=== PATIENT | female | born 1960 | race African-American/Black ===

== ENCOUNTER 2020-04-30 18:48 | Emergency (ER) | payer MEDICARE ==
[~2020-04-30] VITALS: Ht 160 cm; Wt 131.8 kg
[2020-04-30 20:07] LABS: BASO % 1 % (0-3); EOS # 0.2 x10^3/uL (0.0-0.7); EOS % 3 % (0-3); HEMATOCRIT 36.6 % (36.0-47.0); HEMOGLOBIN 11.6 g/dL (12.0-15.5); LYMPH # 1.7 x10^3/uL (1.0-4.8); LYMPH % 23 % (24-48); MEAN CORPUSCULAR HEMOGLOBIN 25 pg (25-35); MEAN CORPUSCULAR HGB CONC 32 g/dL (31-37); MEAN CORPUSCULAR VOLUME 78 fL (79-100); MONO # 0.6 x10^3/uL (0.0-1.1); MONO % 8 % (0-9); NEUT # 4.9 x10^3uL (1.8-7.7); NEUT % 66 % (31-73); PLATELET COUNT 193 x10^3/uL (140-400); RED BLOOD COUNT 4.67 x10^6/uL (3.50-5.40); RED CELL DISTRIBUTION WIDTH 15.9 % (11.5-14.5); WHITE BLOOD COUNT 7.5 x10^3/uL (4.0-11.0)
--- NOTE | 2020-04-30 20:12 | RAD ---
EXAM: AP and lateral views of the right tibia/fibula DATE: 04/30/2020 7:30 PM INDICATION: Reason: Right lower leg swelling and pain, no trauma / Spl. Instructions: / History: COMPARISON: No Prior FINDINGS: No acute fracture or dislocation of the tibia/fibula. Degenerative changes are seen at the right knee. Changes of subtalar joint, calcaneocuboid and naviculocuneiform arthrodesis are seen. Diffuse soft tissue swelling about the right lower leg. Calcaneal enthesopathy. Midfoot degenerative changes are seen. IMPRESSION: 1. No evidence of acute fracture or dislocation. 2. Diffuse soft tissue swelling about the right lower leg 3. Changes of hindfoot arthrodesis as detailed above. Electronically signed by: Roman Ruby MD (04/30/2020 8:09 PM) CELE
[2020-04-30 20:14] LABS: GFR 56.9; POTASSIUM 3.6 mmol/L (3.5-5.1)
[2020-04-30 20:20] LABS: ALBUMIN 3.6 g/dL (3.4-5.0); ALBUMIN/GLOBULIN RATIO 1.1 (1.0-1.7); TOTAL BILIRUBIN 0.2 mg/dL (0.2-1.0)
--- NOTE | 2020-04-30 20:38 | PHYS DOC ---
Past History Past Medical History: Hypertension Additional Past Medical Histor: Club foot Past Surgical History: Other Additional Past Surgical Histo: right ankle surgery Smoking: Cigarettes Alcohol Use: None Drug Use: None General Adult EDM: Chief Complaint: LOWER EXTREMITY SWELLING HPI: HPI: 59-year-old female presents with report of right lower extremity swelling and pain that is been ongoing for the past 2 weeks. Patient reports symptoms have not improved. Reports sensation of some increased warmth to the area. Reports pain really only when patient is walking. Denies fever or chills. Denies known trauma. Patient does have a history of a clubfoot as a child that did require surgical intervention both as a child and again as an adult. Denies history of DVT or PE. Denies chest pain or shortness of air. Review of Systems: Review of Systems: Constitutional: Denies fever or chills Eyes: Denies redness or eye pain HENT: Denies nasal congestion or sore throat Respiratory: Denies cough or shortness of breath Cardiovascular: Denies chest pain or palpitations GI: Denies abdominal pain, nausea, or vomiting : Denies dysuria or hematuria Musculoskeletal: Denies back pain; reports pain to right lower extremity Integument: Denies rash; reports swelling and redness to right lower extremity Neurologic: Denies headache, focal weakness or sensory changes Complete systems were reviewed and found to be within normal limits, except as documented in this note. Allergies: Allergies: Allergies Coded Allergies Type Severity Reaction Last Updated Verified cephalexin Allergy Unknown 04/30/20 Yes Physical Exam: PE: Constitutional: Well developed, obese, no acute distress, non-toxic appearance HENT: Normocephalic, atraumatic Eyes: Conjunctiva normal, no discharge Neck: Normal range of motion, supple Cardiovascular: Right PT and DP +2 Lungs & Thorax: No respiratory distress, equal chest rise and fall Skin: Warm, dry, no erythema, venous stasis to bilateral lower extremities, mild erythema noted to pretibial area on right which is tender to palpation Extremities: Right anterior pretibial tenderness, ROM intact, 1+ edema to right lower extremity Neurologic: Alert and oriented X 3, no focal deficits noted Psychologic: Affect normal, judgment normal Current Patient Data: Labs: Laboratory Tests Test 04/30/20 19:40 White Blood Count 7.5 x10^3/uL (4.0-11.0) Red Blood Count 4.67 x10^6/uL (3.50-5.40) Hemoglobin 11.6 g/dL (12.0-15.5) L Hematocrit 36.6 % (36.0-47.0) Mean Corpuscular Volume 78 fL (79-100) L Mean Corpuscular Hemoglobin 25 pg (25-35) Mean Corpuscular Hemoglobin Concent 32 g/dL (31-37) Red Cell Distribution Width 15.9 % (11.5-14.5) H Platelet Count 193 x10^3/uL (140-400) Neutrophils (%) (Auto) 66 % (31-73) Lymphocytes (%) (Auto) 23 % (24-48) L Monocytes (%) (Auto) 8 % (0-9) Eosinophils (%) (Auto) 3 % (0-3) Basophils (%) (Auto) 1 % (0-3) Neutrophils # (Auto) 4.9 x10^3uL (1.8-7.7) Lymphocytes # (Auto) 1.7 x10^3/uL (1.0-4.8) Monocytes # (Auto) 0.6 x10^3/uL (0.0-1.1) Eosinophils # (Auto) 0.2 x10^3/uL (0.0-0.7) Basophils # (Auto) 0.0 x10^3/uL (0.0-0.2) Prothrombin Time 10.1 SEC (9.4-11.4) Prothrombin Time INR 1.0 (0.9-1.1) Activated Partial Thromboplast Time 26 SEC (23-33) Sodium Level 140 mmol/L (136-145) Potassium Level 3.6 mmol/L (3.5-5.1) Chloride Level 105 mmol/L (98-107) Carbon Dioxide Level 26 mmol/L (21-32) Anion Gap 9 (6-14) Blood Urea Nitrogen 9 mg/dL (7-20) Creatinine 1.0 mg/dL (0.6-1.0) Estimated GFR (Cockcroft-Gault) 56.9 BUN/Creatinine Ratio 9 (6-20) Glucose Level 111 mg/dL (70-99) H Lactic Acid Level 1.1 mmol/L (0.4-2.0) Calcium Level 9.0 mg/dL (8.5-10.1) Magnesium Level 2.0 mg/dL (1.8-2.4) Total Bilirubin 0.2 mg/dL (0.2-1.0) Aspartate Amino Transferase (AST) 23 U/L (15-37) Alanine Aminotransferase (ALT) 32 U/L (14-59) Alkaline Phosphatase 85 U/L (46-116) Total Protein 7.0 g/dL (6.4-8.2) Albumin 3.6 g/dL (3.4-5.0) Albumin/Globulin Ratio 1.1 (1.0-1.7) Vital Signs: Vital Signs Date Time Temp Pulse Resp B/P (MAP) Pulse Ox O2 Delivery O2 Flow Rate FiO2 04/30/20 18:48 98.5 92 16 176/93 (120) 99 Room Air EKG: EKG: [] Radiology/Procedures: Radiology/Procedures: PROCEDURE: TIBIA FIBULA RIGHT EXAM: AP and lateral views of the right tibia/fibula DATE: 04/30/2020 7:30 PM INDICATION: Reason: Right lower leg swelling and pain, no trauma / Spl. Instructions: / History: COMPARISON: No Prior FINDINGS: No acute fracture or dislocation of the tibia/fibula. Degenerative changes are seen at the right knee. Changes of subtalar joint, calcaneocuboid and naviculocuneiform arthrodesis are seen. Diffuse soft tissue swelling about the right lower leg. Calcaneal enthesopathy. Midfoot degenerative changes are seen. IMPRESSION: 1. No evidence of acute fracture or dislocation. 2. Diffuse soft tissue swelling about the right lower leg 3. Changes of hindfoot arthrodesis as detailed above. Electronically signed by: Roman Ruby MD (04/30/2020 8:09 PM) CELE PROCEDURE: VENOUS LOWER EXTREMITY RIGHT VENOUS LOWER EXTREMITY RIGHT History: Reason: RT LOWER LEG PAIN X 3 WEEKS / Spl. Instructions: / History: Comparison: None. Discussion: Multiple longitudinal and transverse high resolution real-time images of the venous system of right lower extremity were obtained with color and Doppler sampling. The common femoral, superficial femoral, popliteal and proximal calf veins are all patent and demonstrate normal flow and compressibility. Normal respiratory phasicity and augmentation is present. Right lower extremity subcutaneous edema. Impression: 1. No evidence of deep vein thrombosis. 2. Right lower extremity subcutaneous edema. Electronically signed by: Pedro Luis Martini DO (04/30/2020 8:51 PM) [facility] Course & Med Decision Making: Course & Med Decision Making Pertinent Labs and Imaging studies reviewed. (See chart for details) Patient presents with right lower extremity swelling and pain. Mild erythema noted. No history of known trauma. Patient does have a history of prior clubfoot that required surgical intervention both as a child and as an adult. V enous stasis dermatitis noted bilaterally. Labs obtained and posted to chart. WBC and lactic acid within normal limits. X-ray without fracture or dislocation but noted soft tissue swelling. Venous Doppler negative for DVT. Peripheral edema noted also on venous doppler. Concern for possible cellulitis component. Empiric doxycycline provided. Pain addressed with [facility]. [facility]s report negative for recent narcotic prescriptions. Patient stable for discharge with outpatient follow-up with PCP. Discussed findings and plan with patient, who acknowledges understanding and agreement. Cat Disclaimer: Cat Disclaimer: This electronic medical record was generated, in whole or in part, using a voice recognition dictation system. Departure Departure: Impression: Primary Impression: Peripheral edema Additional Impression: Cellulitis Qualified Codes: L03.115 - Cellulitis of right lower limb Disposition: HOME/RESIDENCE PRIOR TO ADM Condition: STABLE Patient Instructions: Cellulitis, [id number], Peripheral Edema Scripts Hydrocodone Bit/Acetaminophen (NORCO 5-325 TABLET) 1 Each Tablet 0.5-1 TAB PO Q6HRS PRN for PAIN, #10 TAB Prov: SUSAN CUMMINS DO 04/30/20 Doxycycline Hyclate (DOXYCYCLINE HYCLATE) 100 Mg Capsule 1 CAP PO BID for Cellulitis, #20 CAP Prov: SUSAN CUMMINS DO 04/30/20 Justification of Admission: Justification of Admission: Justification of Admission Dx: N/A SUSAN CUMMINS DO Apr 30, 2020 20:38
[2020-04-30 20:51] VITALS: BP 144/92
--- NOTE | 2020-04-30 20:54 | RAD ---
VENOUS LOWER EXTREMITY RIGHT History: Reason: RT LOWER LEG PAIN X 3 WEEKS / Spl. Instructions: / History: Comparison: None. Discussion: Multiple longitudinal and transverse high resolution real-time images of the venous system of right lower extremity were obtained with color and Doppler sampling. The common femoral, superficial femoral, popliteal and proximal calf veins are all patent and demonstrate normal flow and compressibility. Normal respiratory phasicity and augmentation is present. Right lower extremity subcutaneous edema. Impression: 1. No evidence of deep vein thrombosis. 2. Right lower extremity subcutaneous edema. Electronically signed by: Pedro Luis Martini DO (04/30/2020 8:51 PM) [facility]
[2020-04-30] MEDS ORDERED: DOXY100C2 PO (21:11)
[2020-04-30] MEDS ORDERED: HYDROcodone/APAP 5/325MG 1 TAB TABLET PO ONE (21:15)
[2020-04-30] MEDS ORDERED: HYDR-3165 PO (21:18)
[2020-04-30] MEDS ORDERED: POTASSIUM CHLORIDE 20 MEQ TABLET.ER. PO ONE (21:30)
[2020-04-30] MEDS ORDERED: DOXYCYCLINE HYCLATE 100 MG TABLET PO ONE (21:30)
== END 2020-04-30 21:30 | disposition home or self-care (01) ==
LOC: ER 18:48
DX: L03.115 Cellulitis of right lower limb (principal); R60.0 Localized edema; I10 Essential (primary) hypertension; F17.210 Nicotine dependence, cigarettes, uncomplicated; Z88.1 Allergy status to other antibiotic agents
CPT/HCPCS: 36415; 73590; 80053; 83605; 83735; 85025; 85610; 85730; 93971; 99285-25

== ENCOUNTER 2020-08-04 13:38 | Emergency (ER) | payer MEDICARE ==
[~2020-08-04] VITALS: Ht 160 cm; Wt 131.8 kg
[~2020-08-04 13:38] MED LIST: DOXY100C2 PO; HYDR-3165 PO
[2020-08-04] MEDS ORDERED: HYDR-3165 PO (14:34)
[2020-08-04] MEDS ORDERED: ORPH-16 PO (14:34)
--- NOTE | 2020-08-04 14:35 | PHYS DOC ---
Past History Past Medical History: Anxiety, Hypertension Additional Past Medical Histor: Club foot; SCOILOSIS; BOARDERLINE DM Past Surgical History: Appendectomy, Cholecystectomy, Other Additional Past Surgical Histo: right ankle surgery; GLAND REMOVED FROM THROAT; THYROIDECTOMY Smoking: Cigarettes Alcohol Use: None Drug Use: None General Adult EDM: Chief Complaint: BACK PAIN OR INJURY HPI: HPI: Patient is a 59 year old F who presents with left lower back pain for the past 5 days. She has a history of scoliosis and chronic low back pain, and states that she was on her feet more than normal over the weekend, and now has back pain as a result. She has been previously prescribed cyclobenzaprine for this back pain, but states that it does not help the pain much. She denies any radiation to the groin, denies dysuria or hematuria. Also denies any recent falls or trauma. Denies fevers, COOLEY, n/v. Review of Systems: Review of Systems: Constitutional: Denies fever or chills Eyes: Denies redness or eye pain HENT: Denies nasal congestion or sore throat Respiratory: Denies cough or shortness of breath Cardiovascular: Denies chest pain or palpitations GI: Denies abdominal pain, nausea, or vomiting : Denies dysuria or hematuria Musculoskeletal: Reports lower left sided back pain Integument: Reports skin lesions around bra line on lower back Neurologic: Denies headache, focal weakness or sensory changes Complete systems were reviewed and found to be within normal limits, except as documented in this note. Allergies: Allergies: Allergies Coded Allergies Type Severity Reaction Last Updated Verified cephalexin Allergy Unknown 08/04/20 Yes Physical Exam: PE: Constitutional: Well developed, well nourished, no acute distress, non-toxic appearance HENT: Normocephalic, atraumatic Eyes: PERRL, EOMI, conjunctiva normal, no discharge Neck: Normal range of motion, no tenderness, supple Lungs & Thorax: No respiratory distress, equal chest rise and fall Abdomen: Soft, no tenderness, obese Skin: Warm, dry, no erythema, black head cysts around the bra line on the left back, not tender to light touch. Back: left sided paraspinal muscle with deep palpation, lumbar ROM reduced due to pain, no CVA tenderness, no midline tenderness Extremities: No tenderness, ROM intact, no edema Neurologic: Alert and oriented X 3, normal motor function, normal sensory function, no focal deficits noted Psychologic: Affect normal, judgment normal Current Patient Data: Vital Signs: Vital Signs Date Time Temp Pulse Resp B/P (MAP) Pulse Ox O2 Delivery O2 Flow Rate FiO2 08/04/20 13:51 98.4 65 18 186/102 (130) 96 Room Air EKG: EKG: [] Radiology/Procedures: Radiology/Procedures: [] Course & Med Decision Making: Course & Med Decision Making Pt presents with acute on chronic lower left sided back pain most likely from compensation from her scoliosis. Pain was controlled and one time oral steroid was given to reduce inflammation. Patient stable for discharge with outpatient follow-up with PCP. Discussed findings and plan with patient, who acknowledges understanding and agreement. Cat Disclaimer: Cat Disclaimer: This electronic medical record was generated, in whole or in part, using a voice recognition dictation system. Departure Departure: Impression: Primary Impression: Acute exacerbation of chronic low back pain Disposition: 01 DC HOME SELF CARE/HOMELESS Condition: STABLE Referrals: RASHEL RODRIGUEZ MD (PCP) Patient Instructions: Back Pain, Adult, [id number] Additional Instructions: ICE area of discomfort 20 min on then leave off next 20 mins. Repeat several times daily as needed for pain. May take over the counter Ibuprofen or Aleve in addition to prescribed medications. Scripts Hydrocodone Bit/Acetaminophen (NORCO 5-325 TABLET) 1 Each Tablet 0.5-1 TAB PO Q6HRS PRN for PAIN, #10 TAB Prov: SUSAN CUMMINS DO 08/04/20 Orphenadrine Citrate (ORPHENADRINE CITRATE) 100 Mg Tablet.er 1 TAB PO BID PRN for MUSCLE PAIN, #14 TAB 0 Refills Prov: SUSAN CUMMINS DO 08/04/20 SUSAN CUMMINS DO Aug 04, 2020 14:35
[2020-08-04] MEDS ORDERED: HYDROcodone/APAP 5/325MG 1 TAB TABLET PO ONE (14:45)
[2020-08-04] MEDS ORDERED: DEXAMETHASONE 4 MG TABLET PO ONE (14:45)
[2020-08-04] MEDS ORDERED: ORPHENADRINE CITRATE 60 MG/2 ML VIAL. IM ONE (14:45)
[2020-08-04 14:50] VITALS: BP 181/109
== END 2020-08-04 15:00 | disposition home or self-care (01) ==
LOC: ER 13:38
DX: G89.29 Other chronic pain (principal); M54.5 Low back pain; L98.8 Other specified disorders of the skin and subcutaneous tissue; F41.9 Anxiety disorder, unspecified; I10 Essential (primary) hypertension; F17.210 Nicotine dependence, cigarettes, uncomplicated; Z90.89 Acquired absence of other organs; Z90.49 Acquired absence of other specified parts of digestive tract; Z88.1 Allergy status to other antibiotic agents
CPT/HCPCS: 96372; 99283; J2360; J8540

== ENCOUNTER 2020-12-16 19:44 | Emergency (ER) | payer MEDICARE ==
[~2020-12-16] VITALS: Ht 160 cm; Wt 136.6 kg
[~2020-12-16 19:44] MED LIST changes: +CARV6.2541 PO; +DOXA2TAB2 PO; +DULO60CA6 PO; +LEVO200T5 PO; +ORPH-16 PO
[2020-12-16] MEDS ORDERED: ASPIRIN CHEWABLE 81 MG TABLET. PO ONE (20:00)
[2020-12-16] MEDS ORDERED: IV NORMAL SALINE 1,000ML 1,000 ML IV SCH (20:00)
--- NOTE | 2020-12-16 20:11 | EKG ---
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
--- NOTE | 2020-12-16 20:17 | PHYS DOC ---
Past History Past Medical History: Anxiety, Hypertension Additional Past Medical Histor: Club foot; SCOILOSIS; BOARDERLINE DM (JONO GONZALEZ APRN) Past Surgical History: Appendectomy, Cholecystectomy, Other Additional Past Surgical Histo: right ankle surgery; GLAND REMOVED FROM THROAT; THYROIDECTOMY (JONO GONZALEZ APRN) Smoking: Cigarettes Alcohol Use: None Drug Use: None (JONO GONZALEZ APRN) General Adult EDM: Chief Complaint: CHEST PAIN HPI: HPI: Patient is a 59-year-old female who presents with left-sided chest pain. Patient reports chest pain started yesterday describes pain as a intermittent squeezing, pressure. Patient also reports left-sided arm and shoulder pain but reports this is a chronic issue. Patient states that she has had some nausea but denies vomiting, dizziness. Patient denies anything making the pain better or worse. Denies taking anything at home for the pain. Denies history of [place]. Patient has history of anxiety, hypertension, diabetes. (JONO GONZALEZ APRN) Review of Systems: Review of Systems: Constitutional: Denies fever or chills Eyes: Denies change in visual acuity HENT: Denies nasal congestion or sore throat Respiratory: Denies cough or shortness of breath Cardiovascular: Reports chest pain, denies edema GI: Denies abdominal pain, nausea, vomiting, bloody stools or diarrhea : Denies dysuria Musculoskeletal: Denies back pain or joint pain Integument: Denies rash Neurologic: Denies headache, focal weakness or sensory changes Endocrine: Denies polyuria or polydipsia Lymphatic: Denies swollen glands Psychiatric: Denies depression or anxiety (JONO GONZALEZ APRN) Current Medications: Current Meds: Current Medications Medications (Trade) Dose Ordered Sig/Aleyda Start Time Stop Time Status Last Admin Dose Admin Aspirin (Aspirin Chewable) 324 mg 1X ONCE 12/16/20 20:00 12/16/20 20:01 UNV Sodium Chloride 1,000 ml @ 1,000 mls/hr Q1H 12/16/20 20:00 12/16/20 20:59 UNV (JONO GONZALEZ APRN) Allergies: Allergies: Allergies Coded Allergies Type Severity Reaction Last Updated Verified cephalexin Allergy Unknown 08/04/20 Yes (JONO GONZALEZ APRN) Physical Exam: PE: Constitutional: Well developed, well nourished, no acute distress, non-toxic appearance. [] HENT: Normocephalic, atraumatic, bilateral external ears normal, oropharynx moist, no oral exudates, nose normal. [] Eyes: PERRLA, EOMI, conjunctiva normal, no discharge. [] Neck: Normal range of motion, no tenderness, supple, no stridor. [] Cardiovascular:Heart rate regular rhythm, no murmur [] Lungs & Thorax: Bilateral breath sounds clear to auscultation [] Abdomen: Bowel sounds normal, soft, no tenderness, no masses, no pulsatile masses. [] Skin: Warm, dry, no erythema, no rash. [] Back: No tenderness, no CVA tenderness. [] Extremities: No tenderness, no cyanosis, no clubbing, ROM intact, no edema. [] Neurologic: Alert and oriented X 3, normal motor function, normal sensory function, no focal deficits noted. [] Psychologic: Affect normal, judgement normal, mood normal. [] (JONO GONZALEZ APRN) EKG: EKG: Sinus rhythm. Heart rate 64 bpm. Intervals normal. Fairchance normal. Read by Dr. Ramos. [] (JONO GONZALEZ APRN) Radiology/Procedures: Radiology/Procedures: []INDICATION: Reason: chest pain / Spl. Instructions: / History: COMPARISON: November 24, 2010 FINDINGS: Single view of chest obtained. Cardiomediastinal silhouette is enlarged and appears increased from prior. The lower lungs are not well evaluated secondary to overlying soft tissue structures obscuring but there is some relative haziness at the left lung base. Degenerative changes of the shoulders and spine IMPRESSION: * Enlarged cardiomediastinal Silhouette which could be from cardiomegaly and/or pericardial effusion. * Limited assessment of the lung bases secondary to overlying structures obscuring but there is some relative haziness at the left lung base therefore a region of atelectasis or infiltrate is not excluded. Electronically signed by: Noé Alvares MD (12/16/2020 8:40 PM) [id number] (JONO GONZALEZ APRN) Radiology/Procedures: INDICATION: Reason: chest pain / Spl. Instructions: / History: COMPARISON: November 24, 2010 FINDINGS: Single view of chest obtained. Cardiomediastinal silhouette is enlarged and appears increased from prior. The lower lungs are not well evaluated secondary to overlying soft tissue structures obscuring but there is some relative haziness at the left lung base. Degenerative changes of the shoulders and spine IMPRESSION: * Enlarged cardiomediastinal Silhouette which could be from cardiomegaly and/or pericardial effusion. * Limited assessment of the lung bases secondary to overlying structures obscuring but there is some relative haziness at the left lung base therefore a region of atelectasis or infiltrate is not excluded. Electronically signed by: Noé Alvares MD (12/16/2020 8:40 PM) [id number] DICTATED AND SIGNED BY: NOÉ ALVARES MD DATE: 12/16/202037 CC: RASHEL RODRIGUEZ MD; JONO OGNZALEZ HAND OR MACHINE PASTER ~MTH0 0 Exam: CT of chest with contrast INDICATION: Chest pain TECHNIQUE: Sequential axial images through the chest obtained following the administration of 100 mL of Omni 350 IV contrast. Sagittal and coronal reformatted images were reconstructed from the axial data and reviewed. 3-D reformatted images were reconstructed from the axial data and reviewed. Comparisons: Chest x-ray same day FINDINGS: No enlarged mediastinal lymph nodes are identified. Heart size is normal. No pericardial effusion. Thoracic aorta has a normal course and caliber. Pulmonary artery is not enlarged. No pulmonary embolus identified within the main, lobar or segmental pulmonary arteries. Airways are patent. No consolidation or pneumothorax. No suspicious lung nodules are identified. 7 mm nodule left lower lobe series 8 image 139. No pleural effusion or thickening. Visualized upper abdomen is unremarkable. No suspicious osseous lesions or acute fractures. IMPRESSION: Normal appearance of the thoracic aorta without evidence for aneurysm or dissection. No pulmonary embolus identified. Exposure: One or more of the following in the visualized dose reduction techniques were utilized for this examination: 1. Automated exposure control 2. Adjustment of the MA and/or KV according to patient size 3. Use of iterative of reconstructive technique Electronically signed by: Gwendolyn Jaquez MD (12/16/2020 10:30 PM) [facility] (LIZZIE RAMOS MD) Heart Score: C/O Chest Pain: Yes HEART Score for Chest Pain: HEART Score for Chest Pain Response (Comments) Value History Moderately Suspicious 1 ECG Normal 0 Age >45 - < 65 1 Risk Factors >3 Risk Factors or Hx CAD 2 Troponin < Normal Limit 0 Total 4 Risk Factors: Risk Factors: DM, Current or recent (<one month) smoker, HTN, HLP, family history of CAD, obesity. Risk Scores: Score 0 - 3: 2.5% MACE over next 6 weeks - Discharge Home Score 4 - 6: 20.3% MACE over next 6 weeks - Admit for Clinical Observation Score 7 - 10: 72.7% MACE over next 6 weeks - Early Invasive Strategies (JONO GONZALEZ APRN) C/O Chest Pain: Yes HEART Score for Chest Pain: HEART Score for Chest Pain Response (Comments) Value History Slighlty/Non-Suspicious 0 ECG Normal 0 Age >45 - < 65 1 Risk Factors 1 or 2 Risk Factors 1 Troponin < Normal Limit 0 Total 2 (LIZZIE RAMOS MD) Course & Med Decision Making: Course & Med Decision Making Pertinent Labs and Imaging studies reviewed. (See chart for details) [] EKG normal sinus rhythm. Heart rate 64 bpm. Intervals normal. Fairchance normal. Troponin is negative. Heart score of 4. Chest x-ray shows Enlarged cardiomediastinal Silhouette which could be from cardiomegaly and/or pericardial effusion. Radial pulses are same on both side. Negative Systolic BP differential. CTA of chest ordered to rule out aortic dissection. Transfer patient care to Dr. Ramos (JONO GOZNALEZ APRN) Course & Med Decision Making Patient is a 60-year-old female that presented to the emergency department with chest pain. Took over patient's care at checkout. On reassessment of patient, stated she was now asymptomatic. EKG normal. Troponin normal. D-dimer normal. Heart score of 2. CTA with no concerning findings. Rest of patient's labo ratory analysis not concerning. Vital signs remain stable and not concerning. Discussed all findings with patient advised to follow-up first thing in the morning with her primary care physician and set up a follow-up as soon as she can. Gave strict return precautions to the ED. Patient grateful, verbalized understanding and agreed with plan of discharge. (LIZZIE RAMOS MD) Dragon Disclaimer: Dragon Disclaimer: This electronic medical record was generated, in whole or in part, using a voice recognition dictation system. (JONO GONZALEZ APRN) Departure Departure: Referrals: RASHEL RODRIGUEZ MD (PCP) JONO GONZALEZ APRN Dec 16, 2020 20:17 LIZZIE RAMOS MD Dec 16, 2020 21:20
[2020-12-16 20:25] LABS: CALCIUM 9.4 mg/dL (8.5-10.1); CREATININE 0.8 mg/dL (0.6-1.0); GFR 88.8; POTASSIUM 3.8 mmol/L (3.5-5.1)
[2020-12-16 20:27] LABS: BASO # 0.1 x10^3/uL (0.0-0.2); BASO % 1 % (0-3); EOS # 0.2 x10^3/uL (0.0-0.7); EOS % 3 % (0-3); HEMATOCRIT 36.7 % (36.0-47.0); HEMOGLOBIN 10.9 g/dL (12.0-15.5); LYMPH # 2.4 x10^3/uL (1.0-4.8); LYMPH % 31 % (24-48); MEAN CORPUSCULAR HEMOGLOBIN 22 pg (25-35); MEAN CORPUSCULAR HGB CONC 30 g/dL (31-37); MEAN CORPUSCULAR VOLUME 72 fL (79-100); MONO # 0.8 x10^3/uL (0.0-1.1); MONO % 10 % (0-9); NEUT # 4.5 x10^3uL (1.8-7.7); NEUT % 56 % (31-73); PLATELET COUNT 247 x10^3/uL (140-400); RED BLOOD COUNT 5.08 x10^6/uL (3.50-5.40); RED CELL DISTRIBUTION WIDTH 25.7 % (11.5-14.5)
[2020-12-16 20:37] LABS: ALBUMIN 3.9 g/dL (3.4-5.0); ALBUMIN/GLOBULIN RATIO 1.1 (1.0-1.7); TOTAL BILIRUBIN 0.2 mg/dL (0.2-1.0); TOTAL PROTEIN 7.3 g/dL (6.4-8.2)
--- NOTE | 2020-12-16 20:42 | RAD ---
INDICATION: Reason: chest pain / Spl. Instructions: / History: COMPARISON: November 24, 2010 FINDINGS: Single view of chest obtained. Cardiomediastinal silhouette is enlarged and appears increased from prior. The lower lungs are not we ll evaluated secondary to overlying soft tissue structures obscuring but there is some relative hazin ess at the left lung base. Degenerative changes of the shoulders and spine IMPRESSION: * Enlarged cardiomediastinal Silhouette which could be from cardiomegaly and/or pericardial effusion . * Limited assessment of the lung bases secondary to overlying structures obscuring but there is some relative haziness at the left lung base therefore a region of atelectasis or infiltrate is not exclu ded. Electronically signed by: Abdias Rogel MD (12/16/2020 8:40 PM) [id number]
[2020-12-16] MEDS ORDERED: IOHEXOL 350 MG/ML 100 ML VIAL. IV ONE (21:30)
[2020-12-16 21:46] LABS: ANISOCYTOSIS MARKED; HYPOCHROMIA MOD; MICROCYTOSIS SLIGHT; PLT ESTIMATE ADEQUATE (ADEQUATE)
--- NOTE | 2020-12-16 22:33 | RAD ---
Exam: CT of chest with contrast INDICATION: Chest pain TECHNIQUE: Sequential axial images through the chest obtained following the administration of 100 mL of Omni 350 IV contrast. Sagittal and coronal reformatted images were reconstructed from the axial da ta and reviewed. 3-D reformatted images were reconstructed from the axial data and reviewed. Comparisons: Chest x-ray same day FINDINGS: No enlarged mediastinal lymph nodes are identified. Heart size is normal. No pericardial effusion. Thoracic aorta has a normal course and caliber. Pulmon taty artery is not enlarged. No pulmonary embolus identified within the main, lobar or segmental pulmo nary arteries. Airways are patent. No consolidation or pneumothorax. No suspicious lung nodules are identified. 7 mm nodule left lower lobe series 8 image 139. No pleural effusion or thickening. Visualized upper abdomen is unremarkable. No suspicious osseous lesions or acute fractures. IMPRESSION: Normal appearance of the thoracic aorta without evidence for aneurysm or dissection. No pulmonary emb olus identified. Exposure: One or more of the following in the visualized dose reduction techniques were utilized for this examination: 1. Automated exposure control 2. Adjustment of the MA and/or KV according to patient size 3. Use of iterative of reconstructive technique Electronically signed by: Gwendolyn Jaquez MD (12/16/2020 10:30 PM) [facility]
[2020-12-16 23:29] VITALS: BP 136/90
== END 2020-12-16 23:30 | disposition home or self-care (01) ==
LOC: ER 19:44
DX: R07.89 Other chest pain (principal); M25.512 Pain in left shoulder; R11.0 Nausea; F41.9 Anxiety disorder, unspecified; I10 Essential (primary) hypertension; F17.210 Nicotine dependence, cigarettes, uncomplicated; Z88.1 Allergy status to other antibiotic agents
CPT/HCPCS: 36415; 71045; 71275; 80053; 82550; 83880; 84484; 85025; 85379; 93005; 96360; 96361; 99285; J7030; Q9967

== ENCOUNTER 2021-03-14 15:11 | Emergency (ER) | payer MEDICARE ==
[~2021-03-14] VITALS: Ht 160 cm; Wt 137.4 kg
[2021-03-14 15:20] VITALS: BP 150/73
--- NOTE | 2021-03-14 16:25 | PHYS DOC ---
Past History Past Medical History: Anxiety, Hypertension Additional Past Medical Histor: Club foot; SCOILOSIS; BOARDERLINE DM Past Surgical History: Appendectomy, Cholecystectomy, Other Additional Past Surgical Histo: right ankle surgery; GLAND REMOVED FROM THROAT; THYROIDECTOMY Smoking: Cigarettes Alcohol Use: None Drug Use: None General Adult EDM: Chief Complaint: NOSEBLEED HPI: HPI: Patient is a 60-year-old female presents with nosebleed off and on for the last 7 days. Patient states that today the bleeding was worse than normal. Denies dizziness.Patient denies any injury or use of blood thinners. Patient states "I just started a new antidepressant and thought maybe that is why my nose is bleeding". History of hypertension, anxiety, depression. Review of Systems: Review of Systems: Constitutional: Denies fever or chills Eyes: Denies change in visual acuity HENT: Reports nasal bleeding Respiratory: Denies cough or shortness of breath Cardiovascular: Denies chest pain or edema GI: Denies abdominal pain, nausea, vomiting, bloody stools or diarrhea : Denies dysuria Musculoskeletal: Denies back pain or joint pain Integument: Denies rash Neurologic: Denies headache, focal weakness or sensory changes Endocrine: Denies polyuria or polydipsia Lymphatic: Denies swollen glands Psychiatric: Reports history of depression or anxiety Allergies: Allergies: Allergies Coded Allergies Type Severity Reaction Last Updated Verified amlodipine Allergy Unknown 03/14/21 Yes cephalexin Allergy Unknown 08/04/20 Yes lisinopril Allergy Unknown 03/14/21 Yes Physical Exam: PE: Constitutional: Well developed, well nourished, no acute distress, non-toxic appearance. [] HENT: bilateral external ears normal, oropharynx moist, no oral exudates, nose bleed Eyes: PERRLA, EOMI, conjunctiva normal, no discharge. [] Neck: Normal range of motion, no tenderness, supple, no stridor. [] Cardiovascular:Heart rate regular rhythm, no murmur [] Lungs & Thorax: Bilateral breath sounds clear to auscultation [] Abdomen: Bowel sounds normal, soft, no tenderness, no masses, no pulsatile masses. [] Skin: Warm, dry, no erythema, no rash. [] Back: No tenderness, no CVA tenderness. [] Extremities: No tenderness, no cyanosis, no clubbing, ROM intact, no edema. [] Neurologic: Alert and oriented X 3, normal motor function, normal sensory function, no focal deficits noted. [] Psychologic: Affect normal, judgement normal, mood normal. [] Current Patient Data: Vital Signs: Vital Signs Date Time Temp Pulse Resp B/P (MAP) Pulse Ox O2 Delivery O2 Flow Rate FiO2 03/14/21 15:20 98.4 65 18 150/73 (98) 94 Room Air EKG: EKG: [] Radiology/Procedures: Radiology/Procedures: [] Heart Score: C/O Chest Pain: No Risk Factors: Risk Factors: DM, Current or recent (<one month) smoker, HTN, HLP, family history of CAD, obesity. Risk Scores: Score 0 - 3: 2.5% MACE over next 6 weeks - Discharge Home Score 4 - 6: 20.3% MACE over next 6 weeks - Admit for Clinical Observation Score 7 - 10: 72.7% MACE over next 6 weeks - Early Invasive Strategies Course & Med Decision Making: Course & Med Decision Making Pertinent Labs and Imaging studies reviewed. (See chart for details) [] 60-year-old female presents with nosebleed for the last 7 days. Patient states that bleeding has been intermittent. Nose clamp was applied to patient's nose and bleeding was controlled. Patient educated on prevention and appropriate treatment. Patient is hemodynamically stable. Patient is appreci ative and okay with discharge plan. Dragon Disclaimer: Dragon Disclaimer: This electronic medical record was generated, in whole or in part, using a voice recognition dictation system. Departure Departure: Impression: Primary Impression: Nasal bleeding Disposition: HOME / SELF CARE / HOMELESS Condition: STABLE Referrals: RASHEL RODRIGUEZ MD (PCP) Patient Instructions: Nosebleed, [id number] Additional Instructions: EMERGENCY DEPARTMENT GENERAL DISCHARGE INSTRUCTIONS Thank you for coming to [facility] (ED) today and trusting us with you care. We trust that you had a positivie experience in our Emergency Department. If you wish to speak to the department management, you may call the director at [phone]. YOUR FOLLOW UP INSTRUCTIONS ARE FOLLOWS: 1. Do you have a private Doctor? If you do not have a private doctor, please ask for a resource list of physicians or clinics that may be able to assist you with follow up care. 2. The Emergency Physician has interpreted your x-rays. The X-Ray specialist will also review them. If there is a change in the findings, you will be notified in 48 hours when at all possible. 3. A lab test or culture has been done, your results will be reviewed and you will be notified if you need a change in treatment. ADDITIONAL INSTRUCTIONS AND INFORMATION: 1. Your care today has been supervised by a physician who is specially trained in emergency care. Many problems require more than one evaluation for a complete diagnosis and treatment. We recommend that you schedule your follow up appointment as recommended to ensure complete treatment of you illness or injury. If you are unable to obtain follow up care and continue to have a problem, or if your condition worsens, we recommend that you return to the ED. 2. We are not able to safely determine your condition over the phone nor are we able to give sound medical advice over the phone. For these safety reasons, if you call for medical advice we will ask you to come to the ED for further evaluation. 3. If you have any questions regarding these discharge instructions please call the ED at [phone]. SAFETY INFORMATION: In the interest of safety, wellness, and injury prevention; we encourage you to wear your sealbelt, if you smoke; quite smoking, and we encourage family to use a protective helmet for bicycling and other sporting events that present an increased risk for head injury. IF YOUR SYMPTOMS WORSEN OR NEW SYMPTOMS DEVELOP, OR YOU HAVE CONCERNS ABOUT YOUR CONDITION; OR IF YOUR CONDITION WORSENS WHILE YOU ARE WAITING FOR YOUR FOLLOW UP APPOINTMENT; EITHER CONTACT YOUR PRIMARY CARE DOCTOR, THE PHYSICIAN WHOSE NAME AND NUMBER YOU WERE GIVEN, OR RETURN TO THE ED IMMEDIATELY. JONO GONZALEZ APRN Mar 14, 2021 16:25
== END 2021-03-14 16:42 | disposition home or self-care (01) ==
LOC: ER 15:11
DX: R04.0 Epistaxis (principal); F41.9 Anxiety disorder, unspecified; I10 Essential (primary) hypertension; F32.9 Major depressive disorder, single episode, unspecified; F17.210 Nicotine dependence, cigarettes, uncomplicated; Z88.1 Allergy status to other antibiotic agents; Z88.8 Allergy status to other drugs, medicaments and biological substances
CPT/HCPCS: 99281

== ENCOUNTER 2021-03-15 12:27 | Emergency (ER) | payer MEDICARE ==
[~2021-03-15] VITALS: Ht 160 cm; Wt 137.4 kg
[2021-03-15 12:44] VITALS: BP 154/92
[2021-03-15] MEDS ORDERED: OXYMETAZOLINE 0.05% NASAL SPRAY 30ML BOTTLE. NS ONE (12:45)
--- NOTE | 2021-03-15 13:25 | PHYS DOC ---
Past History Past Medical History: Anxiety, Hypertension Additional Past Medical Histor: Club foot; SCOILOSIS; BOARDERLINE DM Past Surgical History: Appendectomy, Cholecystectomy, Other Additional Past Surgical Histo: right ankle surgery; GLAND REMOVED FROM THROAT; THYROIDECTOMY Smoking: Cigarettes Additional Smoking Information: 1 PPD Alcohol Use: None Drug Use: None General Adult EDM: Chief Complaint: NOSEBLEED HPI: HPI: 60-year-old female presents with report of nosebleed that has been intermittent for the past week. Patient reports was seen last night in the emergency department for same. A nasal clamp was placed at that time with interval resolution of patient's bleeding. Patient denies use of blood thinners. Denies trauma. Patient does report history of dryness in her nose which typically is associated with weather change. Patient denies fever or chills. Denies any pain. Denies dizziness or lightheadedness. Review of Systems: Review of Systems: Constitutional: Denies fever or chills Eyes: Denies redness or eye pain HENT: Denies nasal congestion; reports epistaxis Respiratory: Denies cough or shortness of breath Cardiovascular: Denies chest pain or palpitations GI: Denies abdominal pain, nausea, or vomiting : Denies dysuria or hematuria Musculoskeletal: Denies back pain or joint pain Integument: Denies rash or skin lesions Neurologic: Denies headache, focal weakness or sensory changes; denies dizziness or lightheadedness. Complete systems were reviewed and found to be within normal limits, except as documented in this note. Current Medications: Current Meds: Current Medications Medications (Trade) Dose Ordered Sig/Aleyda Start Time Stop Time Status Last Admin Dose Admin Oxymetazoline HCl (Afrin) 2 spray 1X ONCE 03/15/21 12:45 03/15/21 12:49 DC 03/15/21 12:41 2 SPRAY Allergies: Allergies: Allergies Coded Allergies Type Severity Reaction Last Updated Verified amlodipine Allergy Unknown 03/14/21 Yes cephalexin Allergy Unknown 08/04/20 Yes lisinopril Allergy Unknown 03/14/21 Yes Physical Exam: PE: Constitutional: Well developed, well nourished, no acute distress, non-toxic appearance HENT: Normocephalic, atraumatic; epistaxis noted to right nare Eyes: Conjunctiva normal, no discharge Neck: Normal range of motion, supple Lungs & Thorax: No respiratory distress, equal chest rise and fall Skin: Warm, dry, no erythema, no rash Neurologic: Alert and oriented X 3, no focal deficits noted Psychologic: Affect normal, judgment normal Current Patient Data: Vital Signs: Vital Signs Date Time Temp Pulse Resp B/P (MAP) Pulse Ox O2 Delivery O2 Flow Rate FiO2 03/15/21 12:44 97.5 70 20 154/92 (112) 96 Room Air EKG: EKG: [] Radiology/Procedures: Radiology/Procedures: [] Heart Score: C/O Chest Pain: N/A Course & Med Decision Making: Course & Med Decision Making Patient presents with report of intermittent nosebleed x1 week. Patient seen last night for acute exacerbation which was resolved after nasal clamp. Patient denies use of blood thinners. Denies dizziness or lightheadedness. Denies trauma. Denies pain. Afrin nasal spray utilized along with tongue depressor nasal clamp. Patient with interval resolution of bleeding. Patient stable for discharge with outpatient follow-up with PCP/ENT. ENT referral provided. Discussed findings and plan with patient, who acknowledges understanding and agreement. Cat Disclaimer: Cat Disclaimer: This electronic medical record was generated, in whole or in part, using a voice recognition dictation system. Additional Procedures Progress Epistaxis treatment: Verbal consent obtained. Time out performed. Hand hygiene utilized. Patient blew her nose to remove clots from both nostrils. 2 sprays of Afrin utilized to each nostril with immediate tongue depressor nasal clamp application. Clamp left on for 15 minutes then removed. No further bleeding noted. Utilized otoscope without further bleeding appreciated. Patient tolerated procedure well and without difficulty. Departure Departure: Impression: Primary Impression: Epistaxis Disposition: HOME / SELF CARE / HOMELESS Condition: IMPROVED Referrals: RASHEL RODRIGUEZ MD (PCP) Patient Instructions: Nosebleed, [id number] Additional Instructions: Use bedside humidifier at night when sleeping. Use over the counter nasal saline spray several times daily for next few days. FOR CONTINUED BLEEDIN) Blow out any clots from both nostrils. 2) Use provided Afrin nasal spray. 2 sprays to each nostril. 3) Immediately apply nasal clamp provided in the ED and apply for 15 mins 4) After 15 mins, remove clamp. If bleeding persists, then repeat 2 more times. If continued bleeding after 3 rounds of Afrin and total of 45 min of nasal cl amping, then present to ED for further evaluation and treatment. SUSAN CUMMINS DO Mar 15, 2021 13:25
== END 2021-03-15 13:36 | disposition home or self-care (01) ==
LOC: ER 12:27
DX: R04.0 Epistaxis (principal); F41.9 Anxiety disorder, unspecified; I10 Essential (primary) hypertension; F17.210 Nicotine dependence, cigarettes, uncomplicated; Z88.1 Allergy status to other antibiotic agents; Z88.8 Allergy status to other drugs, medicaments and biological substances
CPT/HCPCS: 99282

== ENCOUNTER → 2021-11-22 | Outpatient (CLI) | payer MEDICARE ==
[~2021-11-22] MED LIST changes: -DOXY100C2 PO; +DOXY100C3 PO; -DULO60CA6 PO; +DULO60CA7 PO
--- NOTE | 2021-11-22 17:50 | CARD ---
MR#: [id number] Date of Study: 11/22/2021 Ordering Physician: RASHEL RODRIGUEZ, Referring Physician: RASHEL RODRIGUEZ, Tech: Li Fine, [facility] APPROVED REPORT EXAM: Two-dimensional and M-mode echocardiogram with Doppler and color Doppler. Other Information Quality : AverageHR: 62bpm Technically limited study due to body habitus. INDICATION Dyspnea RISK FACTORS Hypertension Hyperlipidemia Smoking 2D DIMENSIONS Left Atrium(2D)4.6 (1.6-4.0cm)IVSd1.3 (0.7-1.1cm) Aortic Root(2D)3.0 (2.0-3.7cm)LVDd5.7 (3.9-5.9cm) LVOT Diameter2.1 (1.8-2.4cm)PWd1.3 (0.7-1.1cm) LVDs4.5 (2.5-4.0cm)FS (%) 21.9 % SV70.8 mlLVEF(%)43.7 (>50%) Aortic Valve AoV Peak Clayton.194.5cm/sAoV VTI44.2cm AO Peak GR.15.1mmHgLVOT Peak Clayton.115.7cm/s LVOT VTI 26.11cmAO Mean GR.8mmHg ALVIN (VMAX)1.62xs6IXI (VTI)1.95cm2 Mitral Valve MV E Abrmogdu725.2cm/sMV E Peak Gr.5mmHg MV DECEL [id number] A Dccqsmap619.4cm/s MV E Mean Gr.2mmHgE/A Ratio1.2 Pulmonary Valve PV Peak Ofojfbiy53.9cm/sPV Peak Grad.4mmHg Tricuspid Valve TR P. Xfxnqxxf353mi/sRAP KFRGXTFZ7gvCm TR Peak Gr.39kpUfBSZZ94pzRe LEFT VENTRICLE The left ventricle is normal size. There is moderate concentric left ventricular hypertrophy. The lef t ventricular systolic function is normal. The Ejection Fraction is 55%. There is normal LV segmental wall motion. RIGHT VENTRICLE The right ventricle is borderline dilated. The right ventricle is borderline hypertrophied. The right ventricular systolic function is normal. ATRIA The left atrium is borderline dilated. The right atrium is mildly dilated. The interatrial septum is intact with no evidence for an atrial septal defect or patent foramen ovale as noted on 2-D or Dopple r imaging. AORTIC VALVE The aortic valve is normal in structure and function. Doppler and Color Flow revealed no significant aortic regurgitation. There is no significant aortic valvular stenosis. Calculated aortic valve area is 2.3 cm2 with maximum pressure gradient of 15 mmHg and mean pressure gradient of 8 mmHg. MITRAL VALVE The mitral valve is normal in structure and function. There is no evidence of mitral valve prolapse. There is no mitral valve stenosis. Doppler and Color-flow revealed trace mitral regurgitation. TRICUSPID VALVE The tricuspid valve is normal in structure and function. Doppler and Color Flow revealed trace tricus pid regurgitation with an estimated PAP of 35 mmHg. There is no tricuspid valve stenosis. PULMONIC VALVE The pulmonary valve is normal in structure and function. Doppler and Color Flow revealed mild pulmoni c valvular regurgitation. GREAT VESSELS The aortic root is normal in size. The IVC is normal in size and collapses >50% with inspiration. PERICARDIAL EFFUSION There is no evidence of significant pericardial effusion. Critical Notification Critical Value: No <Conclusion> The left ventricular systolic function is normal. The Ejection Fraction is 55%. There is normal LV segmental wall motion. Trace mitral regurgitation. Trace tricuspid regurgitation with an estimated PAP of 35 mmHg. There is no evidence of significant pericardial effusion. Signed by : Andrea Alcantara, Electronically Approved : 11/22/2021 17:49:53
== END ==
LOC: ECHO 08:52
PROVIDERS: ATTEND Family Medicine
DX: I37.1 Nonrheumatic pulmonary valve insufficiency (principal); I51.7 Cardiomegaly; R06.02 Shortness of breath
CPT/HCPCS: 93306

== ENCOUNTER → 2022-01-17 | Outpatient (CLI) | payer MEDICARE ==
--- NOTE | 2022-01-17 15:29 | RAD ---
EXAMINATION: US VENOUS REFLUX, 01/17/2022 9:16 AM CLINICAL INDICATION: Venous insufficiency COMPARISON: Lower extremity venous ultrasound 04/30/2020 PROCEDURE: Multiple grayscale, color Doppler and spectral Doppler sonographic images of the bilateral lower extremities were obtained to evaluate for venous insufficiency. FINDINGS: Right lower extremity: Greater saphenous vein measures 0.8 cm at the greater saphenous-common femoral junction and 0.54 cm f rom the proximal thigh. No reflux. The lesser saphenous vein measures 0.68 cm at the saphenopopliteal junction and 0.44 cm in the proxim al leg. No reflux. Left lower extremity: The greater saphenous vein measures 0.77 cm at the greater saphenous-, and femoral junction and 0.34 cm in the proximal thigh. No reflux. The lesser saphenous vein measures 0.34 cm at the saphenofemoral popliteal junction and 0.31 cm in th e proximal leg. No reflux. IMPRESSION: No reflux in either lower extremity.. Electronically signed by: Ester Horn MD (01/17/2022 3:26 PM) [id number]
== END ==
LOC: US 08:44
PROVIDERS: ATTEND Internal Medicine Cardiovascular Disease
DX: I87.2 Venous insufficiency (chronic) (peripheral) (principal)
CPT/HCPCS: 93970

== ENCOUNTER → 2022-02-14 | Outpatient (CLI) | payer MEDICARE ==
--- NOTE | 2022-02-14 14:06 | RAD ---
INDICATION: Screening for osteopenia/osteoporosis. Reason: FOSOMAX USE, OV FAILURE, SCREENING / Spl. Instructions: / History: COMPARISON: None. TECHNIQUE: Bone densitometry was performed through the lumbar spine and proximal femur. IMPRESSION: Lumbar Spine: BMD: 1.3 T-Score: 1.2 Range: Normal. Degenerative changes the spine with mild scoliotic curvature. Proximal Femur: BMD: 0.86 T-Score: -0.8 Range: Lower limits of normal World Health Organization Criteria for Bone Density: T-Score: > -1.0: Normal Range < -1.0 to -2.5: Osteopenic Range < -2.5: Osteoporotic Range Electronically signed by: Abdias Rogel MD (02/14/2022 2:04 PM) [id number]
--- NOTE | 2022-02-15 09:01 | RAD ---
Exam Date: 02/14/2022 10:[address] THORAX WO Indication: Reason: SOLITARY PULMAONARY NODULE / Spl. Instructions: / History: . TECHNIQUE: CT scan of the chest was performed without intravenous contrast. One or more of the [facility] care dose reduction techniques were utilized: *Automated exposure control (AEC) *Adjustment of mA and/or kV according to patient size *Use of iterative reconstruction technique *CT scan done according to ALARA, or ALARA/IMAGE GENTLY COMPARISON: December 16, 2020 FINDINGS: 7 mm noncalcified lung nodule in the left lung base on image 67 series 2 is unchanged. 2 mm nodule o n the left on image 57 is unchanged. No new lung nodules are identified. Calcified granuloma is not ed in the right lung base. The central airways are patent. There is no focal consolidation, pleural effusion or pneumothorax. The visualized thyroid gland is within normal limits. No lymphadenopathy is seen. Aorta is normal in caliber with atherosclerotic calcifications. The heart is normal in size without pericardial effusion. Minimal or no significant coronary artery calcifications are identified. Images of the upper abdomen demonstrate no focal abnormality. Degenerative changes are seen in the s pine. IMPRESSION: Unchanged left lung nodules, the largest measuring 7 mm. No new lung nodules are identified. Accord ing to the 2017 Fleischner Society Guidelines for Management of Incidental Pulmonary Nodules Detected on CT, for patients with multiple solid nodules 6-8 mm in diameter a follow up CT is recommended in 3-6 months. If the nodule is unchanged at that time, an additional follow up scan is recommended at 1 8-24 months from initial detection for high risk patients, and could also be considered in low risk p atients (minimal or absent history of smoking or other known risk factors). Electronically signed by: Adam Snow MD (02/15/2022 8:58 AM) [id number]
--- NOTE | 2022-02-17 13:16 | RAD ---
EXAM: BILATERAL DIGITAL 3D SCREENING MAMMOGRAPHY. HISTORY: Routine mammographic screening. TECHNIQUE: Bilateral digital 3D and tomographic images were obtained in CC and MLO projections. Compu ter-aided detection was applied. COMPARISON: None available. This is interpreted as a baseline study. COMPOSITION: A. The breasts are almost entirely fatty. FINDINGS: A nodule superior to the right nipple may reflect dilated duct but is indeterminate. See an notations. Scattered and skin calcifications bilaterally are benign. There are no suspicious findings on the lef t. BI-RADS CATEGORY 0: Incomplete--Needs Additional Imaging Evaluation. RECOMMENDATION: 1. Sonography of the right supra-areolar region to assess a nodule at baseline. Electronically signed by: Tony Martinez MD (02/17/2022 1:14 PM) [id number]
== END ==
LOC: MAMMO 10:05
PROVIDERS: ATTEND Family Medicine
DX: Z12.31 Encounter for screening mammogram for malignant neoplasm of breast (principal); R91.8 Other nonspecific abnormal finding of lung field; M47.816 Spondylosis without myelopathy or radiculopathy, lumbar region; M43.8X4 Other specified deforming dorsopathies, thoracic region; E28.39 Other primary ovarian failure
CPT/HCPCS: 71250; 77063; 77067; 77080